=== PATIENT | male | born 1985 | race Two or more races ===

== ENCOUNTER 2021-03-16 11:00 | Outpatient (CLI) | payer OTHER | END 2021-03-16 13:00 | disposition home or self-care (01) | LOC: ASH CLINIC 11:00 | PROVIDERS: ATTEND General Practice | DX: Z23 Encounter for immunization (principal); U07.1 COVID-19 ==

== ENCOUNTER 2022-01-31 17:12 | Inpatient (IN) | payer OTHER ==
[~2022-01-31] VITALS: Ht 58.4 cm; Wt 161.0 kg
== END 2022-02-03 20:09 | disposition home or self-care (01) | DRG 305 ==
LOC: ER 17:12 → MEDI 22:00
PROVIDERS: ADMIT Internal Medicine; ATTEND Internal Medicine
PROC: BW28ZZZ Computerized Tomography (CT Scan) of Head (ICD-10-PCS; 2022-01-31)
PROC: B24BZZZ Ultrasonography of Heart with Aorta (ICD-10-PCS; principal; 2022-02-01)
DX: I16.9 Hypertensive crisis, unspecified (principal); I24.9 Acute ischemic heart disease, unspecified; R55 Syncope and collapse; R07.89 Other chest pain; I10 Essential (primary) hypertension